=== PATIENT | male | born 1955 | race Two or more races ===

== ENCOUNTER 2016-07-19 14:00 | Emergency (ER) | payer OTHER ==
[~2016-07-19] VITALS: Ht 160 cm; Wt 109.1 kg
[~2016-07-19 14:00] MED LIST: ATEN25 PO; BACL10TA PO; DICY20 PO; DIPH25 PO; GABA-529; LORA10TA7 PO; METF500T4 PO; MULT-12 PO; OMEP40CA12; TAMS-1
[2016-07-19 14:22] LABS: GLUCOSE,POINT OF CARE 386 MG/DL (70-110)
[2016-07-19 16:04] LABS: APPEARANCE,URINE CLEAR (CLEAR); GLUCOSE, URINE (UA) >=1000 mg/dL (NEGATIVE); KETONES,URINE TRACE mg/dL (NEGATIVE); LEUKOCYTE ESTERASE ,URINE NEGATIVE (NEGATIVE); OCCULT BLOOD,URINE SMALL (NEGATIVE); PH,URINE 5.5 (5.0-8.0); PROTEIN,URINE POS 1+ (NEGATIVE)
[2016-07-19 16:06] LABS: SQUAMOUS EPITHELIAL CELL,UR Rare /LPF (None Seen); WBC,URINE 0-2 /HPF (0-5)
[2016-07-19 17:03] LABS: BASOPHILS # (AUTO) 0.02 K/uL (0.00-0.20); BASOPHILS % (AUTO) 0.3 % (0.0-2.0); EOSINOPHILS # (AUTO) 0.08 K/uL (0.00-0.70); EOSINOPHILS % (AUTO) 1.06 % (1.0-6.0); HEMATOCRIT 41.6 % (41-53); HEMOGLOBIN 14.2 g/dL (13.5-17.5); LYMPHOCYTES # (AUTO) 2.5 K/uL (1.0-4.8); LYMPHOCYTES % (AUTO) 34.2 % (22.0-44.0); MEAN CORPUSCULAR HEMOGLOBIN 32.1 pg (26.0-34.0); MEAN CORPUSCULAR HGB CONC 34.2 G/dL (31.0-37.0); MEAN CORPUSCULAR VOLUME 94 fL (80-100); MONOCYTES # (AUTO) 0.7 K/uL (0.1-1.0); MONOCYTES % (AUTO) 8.9 % (2.0-9.0); NEUTROPHILS # (AUTO) 4.1 K/uL (1.8-7.7); NEUTROPHILS % (AUTO) 55.5 % (40.0-70.0); PLATELET COUNT (AUTO) 213 K/uL (150-450); RED BLOOD CELL COUNT(AUTO) 4.43 MIL/uL (4.50-5.90); RED CELL DISTRIBUTION WIDTH 13.5 % (11.5-14.5); WHITE BLOOD COUNT (AUTO) 7.4 K/uL (4.5-11.0)
[2016-07-19 17:17] LABS: ANION GAP 7 mmol/L (8-16); CALCIUM, TOTAL 8.8 mg/dL (8.8-10.5); CARBON DIOXIDE 30 mmol/L (22-29); CHLORIDE 96 mmol/L (98-107); GLOMERULAR FILTR. RATE CALC > 60 mL/min (>60); POTASSIUM 4.3 mmol/L (3.5-5.1); SODIUM SERUM 133 mmol/L (136-145); UREA NITROGEN, BLOOD 11 mg/dL (7-18)
[2016-07-19 17:21] LABS: ALANINE AMINOTRANSFERASE 31 U/L (12-78); ALBUMIN 3.3 g/dL (3.4-5.0); ASPARTATE AMINOTRANSFERASE 20 U/L (15-37); BILIRUBIN,TOTAL 0.5 mg/dL (0.1-1.0); TOTAL PROTEIN, SERUM 7.6 g/dL (6.4-8.2)
[2016-07-19 18:14] VITALS: BP 111/62
== END 2016-07-19 18:49 | disposition home or self-care (01) ==
LOC: EMS 14:01
DX: R33.9 Retention of urine, unspecified (principal); I10 Essential (primary) hypertension; E11.9 Type 2 diabetes mellitus without complications; I25.2 Old myocardial infarction; M19.90 Unspecified osteoarthritis, unspecified site
CPT/HCPCS: 82962; 99284

== ENCOUNTER 2016-07-20 15:01 | Emergency (ER) | payer OTHER ==
[~2016-07-20] VITALS: Ht 160 cm; Wt 109.1 kg
[2016-07-20 16:40] LABS: APPEARANCE,URINE CLOUDY (CLEAR); GLUCOSE, URINE (UA) >=1000 mg/dL (NEGATIVE); KETONES,URINE 15 mg/dL (NEGATIVE); LEUKOCYTE ESTERASE ,URINE NEGATIVE (NEGATIVE); OCCULT BLOOD,URINE LARGE (NEGATIVE); PH,URINE 5.5 (5.0-8.0); PROTEIN,URINE SEE CONFIRM (NEGATIVE)
[2016-07-20 16:44] LABS: ADD UA MICROSCOPIC YES
[2016-07-20 16:45] LABS: RBC,URINE 51-100 /HPF (0-2); SULFOSALICYLIC ACID,URINE 3+ (Negative)
[2016-07-20 16:46] LABS: SQUAMOUS EPITHELIAL CELL,UR Few /LPF (None Seen)
[2016-07-20 16:51] VITALS: BP 109/65
== END 2016-07-20 16:58 | disposition home or self-care (01) ==
LOC: EMS 15:03
DX: T83.091A Other mechanical complication of indwelling urethral catheter, initial encounter (principal); R33.9 Retention of urine, unspecified; M19.90 Unspecified osteoarthritis, unspecified site; I10 Essential (primary) hypertension; E11.9 Type 2 diabetes mellitus without complications; I25.2 Old myocardial infarction
CPT/HCPCS: 51702; 99284

== ENCOUNTER 2020-09-09 18:04 | Emergency (ER) | payer OTHER ==
[~2020-09-09] VITALS: Ht 167.6 cm; Wt 136.4 kg
[~2020-09-09 18:04] MED LIST changes: +ATEN-73 PO; -ATEN25 PO; -DICY20 PO; +DICY20TA2 PO; +METF-960 PO; -METF500T4 PO; -OMEP40CA12; +OMEP40CA21
[2020-09-09 19:26] VITALS: BP 129/89
[2020-09-09] MEDS ORDERED: BACITRACIN 0.9 GM PACKET OINTMENT TP ONE (19:30)
== END 2020-09-09 19:42 | disposition home or self-care (01) ==
LOC: EMS 18:06
DX: L08.9 Local infection of the skin and subcutaneous tissue, unspecified (principal); E11.65 Type 2 diabetes mellitus with hyperglycemia; I25.2 Old myocardial infarction; I10 Essential (primary) hypertension; Z90.89 Acquired absence of other organs; Z79.84 Long term (current) use of oral hypoglycemic drugs
CPT/HCPCS: 82962; 99283